=== PATIENT | female | born 1955 | race Caucasian/White ===

== ENCOUNTER 2017-02-18 11:58 | Inpatient (IN) | payer OTHER ==
[~2017-02-18] VITALS: Ht 157.5 cm; Wt 95.3 kg
[2017-02-18 17:04] LABS: BASOPHIL % 0.6 % (0-2); PLATELET COUNT 182 x10^3mcL (130-400); RED CELL DISTRIBUTION WIDTH 14.5 % (11.5-14.5)
[2017-02-18 17:11] LABS: CALCIUM 8.1 mg/dL (8.5-10.1); CARBON DIOXIDE 27.2 mmol/L (21-32); CHLORIDE SERUM 97 mmol/L (98-107); CREATININE SERUM 0.6 mg/dL (0.6-1.0); GFR1 > 60 mL/min; GLUCOSE SERUM 99 mg/dL (74-106); POTASSIUM SERUM 3.2 mmol/L (3.5-5.1); SODIUM SERUM 132 mmol/L (136-145)
[2017-02-18] MEDS ORDERED: FUROSEMIDE40 MG PO (17:17)
[2017-02-18] MEDS ORDERED: POTASSIUM CHLO10 MEQ PO (17:17)
[2017-02-18 17:18] LABS: AMPHETAMINE QUAL UR NONE DETECTED (NEG <=1000)
[2017-02-18 17:23] LABS: ALKALINE PHOSPHATASE 227 U/L (46-116); ALT/SGPT 24 U/L (14-59); AST/SGOT 44 U/L (15-37); BILIRUBIN TOTAL 1.7 mg/dL (0.20-1.00); T4(THYROXINE) 10.3 ug/dL (4.7-13.3); TOTAL PROTEIN, SERUM 6.4 g/dL (6.4-8.2)
[2017-02-18 17:24] LABS: ALBUMIN 2.3 g/dL (3.4-5.0)
[2017-02-18 17:34] LABS: CK-MB < 0.5 ng/mL (0-3.6); CREATINE KINASE 99 U/L (26-192)
[2017-02-18 17:55] LABS: microscopic required? NO
[2017-02-18 18:00] LABS: UA SPECIFIC GRAVITY <=1.005 (1.005-1.035); urine erythrocyte NEGATIVE (NEGATIVE)
[2017-02-18 18:08] LABS: CHOLESTEROL/HDL RATIO 7.4; MAGNESIUM 1.8 mg/dL (1.8-2.4); PHOSPHOROUS 3.4 mg/dL (2.5-4.9)
[2017-02-18 19:37] VITALS: BP 126/70
[2017-02-19 05:40] VITALS: BP 107/62
[2017-02-19 06:59] LABS: BASOPHIL % 0.6 % (0-2); PLATELET COUNT 175 x10^3mcL (130-400)
[2017-02-19 07:21] LABS: CARBON DIOXIDE 28.5 mmol/L (21-32); CHLORIDE SERUM 98 mmol/L (98-107); CREATININE SERUM 0.9 mg/dL (0.6-1.0); GFR1 > 60 mL/min; GLUCOSE SERUM 85 mg/dL (74-106); MAGNESIUM 1.8 mg/dL (1.8-2.4); PHOSPHOROUS 3.4 mg/dL (2.5-4.9); POTASSIUM SERUM 3.9 mmol/L (3.5-5.1); SODIUM SERUM 131 mmol/L (136-145)
[2017-02-19 08:27] VITALS: BP 106/53
[2017-02-19 13:30] VITALS: BP 116/59
[2017-02-19 17:27] LABS: RED BLOOD CELLS 3.33 M/mm3 (4.10-5.10)
[2017-02-19 17:37] LABS: IRON 111 ug/dL (50-170)
[2017-02-19 17:38] LABS: TOTAL IRON BINDING CAPACITY 136 ug/dL (250-450)
[2017-02-19 17:58] VITALS: BP 103/56
[2017-02-19 21:56] VITALS: BP 96/50
[2017-02-20 06:19] VITALS: BP 109/60
[2017-02-20 07:13] LABS: CALCIUM 7.9 mg/dL (8.5-10.1); CARBON DIOXIDE 27.3 mmol/L (21-32); MAGNESIUM 1.7 mg/dL (1.8-2.4); PHOSPHOROUS 3.5 mg/dL (2.5-4.9); POTASSIUM SERUM 3.5 mmol/L (3.5-5.1)
[2017-02-20 07:22] LABS: BASOPHIL % 0.7 % (0-2); PLATELET COUNT 192 x10^3mcL (130-400)
[2017-02-20 07:23] LABS: RED CELL DISTRIBUTION WIDTH 14.7 % (11.5-14.5)
[2017-02-20] MEDS ORDERED: NEU100 PO (08:49)
[2017-02-20] MEDS ORDERED: PRI20 PO (08:49)
[2017-02-20] MEDS ORDERED: COZ25 PO (09:33)
[2017-02-20] MEDS ORDERED: FUROSEMIDE40 MG PO (09:34)
[2017-02-20] MEDS ORDERED: APAP/HYDROCODON1 T13 PO (09:35)
[2017-02-20 09:47] VITALS: BP 87/45
[2017-02-20] MEDS ORDERED: ATACAND16 MG PO (12:59)
[2017-02-20 13:50] VITALS: BP 83/46
[2017-02-20 13:52] VITALS: BP 103/52
[2017-02-20 13:59] VITALS: BP 83/46
[2017-02-20 14:20] VITALS: BP 103/49
== END 2017-02-20 17:30 | disposition home or self-care (01) | DRG 194 ==
LOC: ED 11:58 → DU 16:58 → MU 16:58 → DU 20:21 → MU 02-20 06:46
PROVIDERS: Emergency Medicine; Family Medicine Sports Medicine; ADMIT Family Medicine
DX: I11.0 Hypertensive heart disease with heart failure (principal); E43 Unspecified severe protein-calorie malnutrition; R18.8 Other ascites; I50.9 Heart failure, unspecified; Z82.49 Family history of ischemic heart disease and other diseases of the circulatory system; Z68.37 Body mass index [BMI] 37.0-37.9, adult
CPT/HCPCS: 83880; J1940; J2405; J7030; Q0092

== ENCOUNTER 2017-05-23 11:48 | Emergency (ER) | payer OTHER ==
[~2017-05-23 11:48] MED LIST: APAP/HYDROCODON1 T13 PO; ATACAND16 MG PO; COZ25 PO; FUROSEMIDE40 MG PO; NEU100 PO; POTASSIUM CHLO10 MEQ PO; PRI20 PO
[2017-05-23 13:49] LABS: BASOPHIL % 0.6 % (0-2); PLATELET COUNT 159 x10^3mcL (130-400)
[2017-05-23 13:53] LABS: CALCIUM 8.1 mg/dL (8.5-10.1); CARBON DIOXIDE 26.8 mmol/L (21-32); CHLORIDE SERUM 100 mmol/L (98-107); CREATININE SERUM 0.7 mg/dL (0.6-1.0); GFR1 > 60 mL/min; GLUCOSE SERUM 94 mg/dL (74-106); SODIUM SERUM 138 mmol/L (136-145)
[2017-05-23 13:56] LABS: ALT/SGPT 15 U/L (14-59); AST/SGOT 43 U/L (15-37); LIPASE 85 IU/L (73-393); MAGNESIUM 1.8 mg/dL (1.8-2.4); T4(THYROXINE) 7.4 ug/dL (4.7-13.3); TOTAL PROTEIN, SERUM 7.2 g/dL (6.4-8.2)
[2017-05-23 14:00] LABS: AMYLASE 23 U/L (25-115); HDL CHOLESTEROL 10 mg/dL (40-60)
[2017-05-23 15:22] LABS: ALKALINE PHOSPHATASE 229 U/L (46-116); CHOLESTEROL 122 mg/dL (<200)
[2017-05-23 15:58] LABS: AMPHETAMINE QUAL UR NONE DETECTED (NEG <=1000)
[2017-05-23 16:03] LABS: UA SPECIFIC GRAVITY 1.025 (1.005-1.035); microscopic required? YES; urine erythrocyte NEGATIVE (NEGATIVE)
[2017-05-23 17:44] VITALS: BP 117/63
== END 2017-05-23 17:44 | disposition home or self-care (01) ==
LOC: ED 11:48
PROVIDERS: Emergency Medicine
DX: K70.31 Alcoholic cirrhosis of liver with ascites (principal); N39.0 Urinary tract infection, site not specified; E88.09 Other disorders of plasma-protein metabolism, not elsewhere classified
CPT/HCPCS: 36415; 49083; 83880; G0480; J2001; Q0092

== ENCOUNTER 2017-06-13 05:59 | Day surgery (SDC) | payer OTHER ==
[~2017-06-13] VITALS: Ht 160 cm; Wt 86.2 kg
[2017-06-13 06:40] VITALS: BP 136/76
[2017-06-13 09:35] LABS: CALCIUM 7.5 mg/dL (8.5-10.1); CHLORIDE SERUM 99 mmol/L (98-107); CREATININE SERUM 0.8 mg/dL (0.6-1.0); GFR1 > 60 mL/min; GLUCOSE SERUM 93 mg/dL (74-106); SODIUM SERUM 136 mmol/L (136-145)
[2017-06-13 09:40] LABS: POTASSIUM SERUM 2.7 mmol/L (3.5-5.1)
[2017-06-13 10:21] VITALS: BP 107/73
== END 2017-06-13 10:10 | disposition home or self-care (01) ==
LOC: GI 05:59 → OR 07:30 → GI 07:30
PROVIDERS: Internal Medicine Gastroenterology
PROC: 0DB68ZX Excision of Stomach, Via Natural or Artificial Opening Endoscopic, Diagnostic (ICD-10-PCS; principal; 2017-06-13 07:30)
DX: I85.10 Secondary esophageal varices without bleeding (principal); K29.70 Gastritis, unspecified, without bleeding; K70.31 Alcoholic cirrhosis of liver with ascites; R60.9 Edema, unspecified; F10.188 Alcohol abuse with other alcohol-induced disorder; Z68.38 Body mass index [BMI] 38.0-38.9, adult
CPT/HCPCS: 43235; J1200; J1610; J2250; J2310; J3010; J3490